=== PATIENT | male | born 2000 | race Caucasian/White ===

== ENCOUNTER 2023-10-14 23:39 | Emergency (ER) | payer MEDICAID ==
[~2023-10-14] VITALS: Ht 190.5 cm; Wt 106.6 kg
[2023-10-15] MEDS: KETOROLAC TROMETHAMINE INJ 60 MG/2 ML VIAL IM ONE (00:41)
[2023-10-15] MEDS ORDERED: IBUPROFEN 600 MG TABLET ONE (01:02)
[2023-10-15] MEDS: IBUPROFEN 600 MG TABLET PO ONE (01:03)
[2023-10-15] MEDS ORDERED: KETO10TA2 PO (03:40)
[2023-10-15 04:13] VITALS: BP 132/79; TEMP 98.5; O2SAT 98
== END 2023-10-15 04:14 | disposition home or self-care (01) ==
LOC: ER 23:44
DX: S16.1XXA Strain of muscle, fascia and tendon at neck level, initial encounter (principal); V89.2XXA Person injured in unspecified motor-vehicle accident, traffic, initial encounter; Y93.89 Activity, other specified; Y92.89 Other specified places as the place of occurrence of the external cause; Y99.8 Other external cause status
CPT/HCPCS: 72125-TC